=== PATIENT | female | born 1990 | race Caucasian/White ===

== ENCOUNTER 2017-04-05 05:38 | Emergency (ER) | payer OTHER ==
[2017-04-05 06:38] VITALS: BP 127/73; PULSE 86; TEMP 98.7; BMI 28.3
--- NOTE | 2017-04-05 07:31 | PDOC ---
Attending Attestation - Resident Resident Name: Mu Zhao - ED Attending Attestation I have performed the following: I have examined & evaluated the patient, The case was reviewed & discussed with the resident, I agree w/resident's findings & plan, Exceptions are as noted - HPI HPI: 04/05/17 07:29 26y F hx of chronic swelling in L neck thought to be due to fat (dx on biopsy and MRI) presents with sharp posterior mandibular pain that started suddenly this morning as L ear pain that woke her from bed. Currently she feel layne ulness she is touching the area posterior to her mandibular area. Pt denie sany fever/chills, dysphagia, sob, tinnitus, posterior neck pain, recent trauma. Pt noes she had a teeth cleaning 1 week ago without any othe rprocedures but she was fine until today. Pt notes that there is some pain when she turns her head towards the left. On exam the pt is well apperaing in no distress ENT: clear TM without erythema, no mastoid tenderness, mild tenderness and nondiscrete fullness posterior to the left mandibule. posterior pharynx and oropharynx are clear, no signs of detal or intraoral abscess. +nontender nonpitting swelling on the L cheeck (chronic per patient) ddx: lymphnode, msk spasm, ?malignancy, no signs of infection/absess will ck basic labs will give analgesia if normal will have pt fu with PMD/ENT for further workup - Physicial Exam PE: 04/05/17 09:53 see above - Medical Decision Making 04/05/17 09:53 pt feeling improved labs unremarkble will dc with pmd/ent fu retur nprecautions were discussed I discussed the physical exam findings, ancillary test results and final diagnoses with the patient. I answered all of the patient's questions. The patient was satisfied with the care received and felt comfortable with the discharge plan and treatment plan. The patient will call their primary care physician within 24 hours to arrange follow-up and will return to the Emergency Department with any new, persistent or worsening symptoms.
[2017-04-05] MEDS ORDERED: KETOROLAC TROMETHAMINE 30 MG/1 ML VIAL IVPUSH ONE (07:36)
--- NOTE | 2017-04-05 07:49 | PDOC ---
History of Present Illness - General Chief Complaint: Edema Stated Complaint: PAIN,SWELLING Time Seen by Provider: 04/05/17 07:13 - History of Present Illness Initial Comments: Ms Bowen is a young healthy 26yo F who presents with exquisite L posteroauricular mandibular pain that started suddenly last night. She denies localized trauma to the area, redness, loss of hearing, difficulty breathing, dysphagia. She has chronic L cheek swelling since she was 14yo, and has been worked up by numerous doctors who eventually told her she just has excessive buccal fat, and not to worry. She denies any swelling beyond normal. She went to the dentist 1 week prior for routine dental cleaning, but had no teeth extracted or other procedures. Denies fevers, chills, CP, SOB. Past History - Past Medical History Allergies/Adverse Reactions: Allergies Allergy/AdvReac Type Severity Reaction Status Date / Time No Known Allergies Allergy Verified 04/05/17 06:35 Home Medications: Ambulatory Orders NK [No Known Home Medication] 01/17/15 - Immunization History Immunization Up to Date: Yes - Suicide/Smoking/Psychosocial Hx Smoking Status: No Smoking History: Never smoked Have you smoked in the past 12 months: No Number of Cigarettes Smoked Daily: 0 Hx Alcohol Use: No Drug/Substance Use Hx: No *Physical Exam - Vital Signs Last Vital Signs Temp Pulse Resp BP Pulse Ox 98.7 F 86 14 127/73 99 04/05/17 06:36 04/05/17 06:36 04/05/17 06:36 04/05/17 06:36 04/05/17 06:36 - Physical Exam Comments: GEN: AAOx3, NAD, Lying comfortably HEENT: PERRLA, EOMi L cheek swelling (chronic) w/ no obvious redness, no pus, no superimposed mass, exquisite tenderness in the L posteroauricular mandibular region, difficult to examine due to pain Facial movements are symmetric and intact, just limited by pain. Tympanic membranes are pearly and intact. CV: S1, S2, RRR, no murmurs LUNG: CTABL ABD: Soft, NT, ND, normoactive BS MSK: No edema, no erythema NEURO: CN 2-12 grossly intact ED Treatment Course - LABORATORY CBC & Chemistry Diagram: 04/05/17 08:20 04/05/17 08:20 Medical Decision Making - Medical Decision Making 04/05/17 07:52 Ms Bowen is a young healthy 26yo F with a hx of chronic excessive L buccal fat who presents with exquisite L posteroauricular mandibular pain that started suddenly last night. Dental cleaning 1 week ago, but does not appear infected. Will give IV Toradol for excessive pain. Will get basic labwork to r/ o possible infectious process. Will defer from imaging this young patient at the moment. If pain is controlled, will refer to outpatient ENT. IF pain is not controlled will consider further imaging. 04/05/17 09:31 On re-examination pain is much improved. Scheduled outpatient ENT appt with Dr. Galdamez ([address]) this SaturdayApr 08 at 4:50PM. *DC/Admit/Observation/Transfer Diagnosis at time of Disposition: Mandibular pain - Discharge Dispostion Disposition: HOME Condition at time of disposition: Improved - Referrals Referrals: Chivo Galdamez MD [Staff Physician] - (Appointment scheduled for SaturdayAPRIL 08 4:50 PM) Chayo Cazares MD [Primary Care Provider] - 1 week - Patient Instructions Additional Instructions: You were seen in the Emergency room due to L jaw pain. We do not think there is an infectious process going on because you do not have fever and your lab results are normal. This could be inflammatory. We scheduled an ENT appointment for you this Saturday afternoon with Dr. Galdamez. For the pain please take Tylenol and Motrin as needed. - Post Discharge Activity Forms/Work/School Notes: Back to Work
[2017-04-05] MEDS ORDERED: KETOROLAC TROMETHAMINE 30 MG/1 ML VIAL ONE (08:07)
[2017-04-05 08:53] LABS: BASO % 0.6 % (0-2.0); EOS % 1.4 % (0-4.5); HEMATOCRIT 39.8 % (32.4-45.2); HEMOGLOBIN 12.8 GM/dL (10.7-15.3); LYMPH % 27.3 % (8-40); MCH 26.7 pg (25.7-33.7); MCHC 32.2 g/dl (32.0-36.0); MEAN CELL VOLUME 82.7 fl (80-96); MEAN PLT VOLUME 9.5 fl (7.5-11.1); MONO % 5.8 % (3.8-10.2); NEUT % 64.9 % (42.8-82.8); PLATELET COUNT 282 K/MM3 (134-434); RBC 4.81 M/mm3 (3.60-5.2); RDW 14.2 % (11.6-15.6)
[2017-04-05 08:55] LABS: ALK PHOS 91 U/L (45-117); ANION GAP 8 (8-16); BILIRUBIN,TOTAL 0.3 mg/dL (0.2-1.0); BLOOD UREA NITROGEN 17 mg/dL (7-18); CHLORIDE 104 mmol/L (98-107); CO2 27 mmol/L (21-32); CREATININE 0.6 mg/dL (0.55-1.02); GLUCOSE,RANDOM 87 mg/dL (74-106); POTASSIUM 4.6 mmol/L (3.5-5.1); SGOT/AST 15 U/L (15-37); SGPT/ALT 27 U/L (12-78); SODIUM 139 mmol/L (136-145)
== END 2017-04-05 10:00 | disposition home or self-care (01) ==
LOC: JER 05:38
PROC: 3E0333Z Introduction of Anti-inflammatory into Peripheral Vein, Percutaneous Approach (ICD-10-PCS; principal; 2017-04-05)
DX: R68.84 Jaw pain (principal)
CPT/HCPCS: 36415; 80053; 85025; 96374; 99282-25